=== PATIENT | male | born 1985 | race African-American/Black ===

== ENCOUNTER 2020-06-26 10:36 | Emergency (ER) | payer OTHER ==
[2020-06-27 10:12] LABS: SARS-CoV-2 NAA Not Detected (Not Detected)
== END 2020-06-26 11:13 | disposition home or self-care (01) ==
LOC: JVIRT 10:36
DX: Z20.822 Contact with and (suspected) exposure to COVID-19 (principal)
CPT/HCPCS: C9803; G2251-GT; Q3014-GT; U0003; U0005